=== PATIENT | male | born 1995 | race Caucasian/White ===

== ENCOUNTER 2023-01-18 13:38 | Emergency (ER) | payer OTHER ==
[~2023-01-18] VITALS: Ht 177.8 cm; Wt 100.0 kg
[2023-01-18 13:39] VITALS: BP 129/77; TEMP 99.3; O2SAT 97
[2023-01-18] MEDS ORDERED: AMOX500C PO (13:56)
[2023-01-18] MEDS ORDERED: IBUP-1764 PO (13:58)
[2023-01-18] MEDS ORDERED: ACET-683 PO (13:58)
[2023-01-18] MEDS ORDERED: CLINDAMYCIN 600 MG in IV 1 EA IV ONE (16:50)
[2023-01-18] MEDS ORDERED: KETOROLAC 30 MG/ML 1ML VIAL IV ONE (17:40)
[2023-01-18 17:54] LABS: BASO # 0.1 10^3/uL (0.0-0.2); BASO % 0.4 % (0.0-1.0); EOS # 0.2 10^3/uL (0.0-0.5); EOS % 1.4 % (0.0-3.0); HEMATOCRIT 45.5 % (42.0-52.0); HEMOGLOBIN 15.2 g/dl (13.5-17.5); LYMPH # 2.3 10^3/uL (1.5-5.0); LYMPH % 17.8 % (24.0-44.0); MEAN CORPUSCULAR HEMOGLOBIN 28.6 pg (27.0-33.0); MEAN CORPUSCULAR HGB CONC 33.4 g/dl (32.0-36.5); MEAN CORPUSCULAR VOLUME 85.7 fl (80.0-96.0); MONO % 8.2 % (2.0-8.0); NEUTROPHILS # 9.1 10^3/uL (1.5-8.5); PLATELET COUNT, AUTOMATED 216 10^3/uL (150-450); RED BLOOD COUNT 5.31 10^6/uL (4.30-6.10); WHITE BLOOD COUNT 12.7 10^3/uL (4.0-10.0)
[2023-01-18] MEDS ORDERED: ISOVUE-370 76% 100ML VIAL As Ordered ONE (18:48)
[2023-01-18] MEDS ORDERED: CLEO300C2 PO (19:23)
[2023-01-18] MEDS ORDERED: TRAM50TA2 PO (19:23)
== END 2023-01-18 19:53 | disposition home or self-care (01) ==
LOC: M ED 13:38
DX: K04.7 Periapical abscess without sinus (principal); L03.211 Cellulitis of face; Z88.1 Allergy status to other antibiotic agents; Z88.8 Allergy status to other drugs, medicaments and biological substances
CPT/HCPCS: 70487; 80047; 85025; 96361; 96374; 99283; J0737; J1885; Q9967